=== PATIENT | male | born 1970 | race African-American/Black ===

== ENCOUNTER 2024-08-08 08:24 | Outpatient (CLI) | payer OTHER, SELFPAY | END 2024-08-08 08:25 | disposition home or self-care (01) | PROVIDERS: Visit Provider Physician Assistant | DX: S83.232A Complex tear of medial meniscus, current injury, left knee, initial encounter (principal); X58.XXXA Exposure to other specified factors, initial encounter; M17.12 Unilateral primary osteoarthritis, left knee; M94.262 Chondromalacia, left knee; M61.59 Other ossification of muscle, multiple sites; M61.58 Other ossification of muscle, other site | CPT/HCPCS: 73721 ==